=== PATIENT | male | born 1955 | race Caucasian/White ===

== ENCOUNTER 2022-03-08 21:19 | Emergency (ER) | payer OTHER, SELFPAY ==
[2022-03-08] VITALS (27 sets, daily range): BP systolic 132–148; BP diastolic 72–90; PULSE 69–150; RESP 9–22; TEMP 36.3; O2SAT 97–99
--- NOTE | 2022-03-08 21:15 | RT.EKG_ITS ---
APPROVED REPORT Exam: Resting ECG Reason for Exam: STROKE LIKE SX Patient Location: E HR:70 bpm ECG Measurements Heart Rate 70 AXIS OH 188 P 59 QRSd 97 QRS 32 QT 398 T 57 QTc 420 Conclusion Sinus rhythm...normal P axis, V-rate 60- 99 Atrial premature complexes...SV complexes w/ short R-R intvls Physician: no stemi, stable
--- NOTE | 2022-03-08 21:30 | DI.CT_ITS ---
Exam(s) CT CHEST/ABD/PEL W EXAM: CT CHEST/ABD/PEL W CLINICAL HISTORY: vomting, hx of pancreatitis TECHNIQUE: Imaging Protocol: Axial computed tomography images with coronal and sagittal reformatted images were created and reviewed CONTRAST MATERIAL: Intravenous: Omnipaque 350 contrast volume:75 mL Oral: No COMPARISON: No priors for comparison. FINDINGS: CHEST: Tracheobronchial tree: Patent where visualized. Pulmonary parenchyma: No consolidation or dominant measurable mass. Paraseptal emphysematous changes are present. Calcified granuloma are present. Visualized thyroid gland: Unremarkable. Mediastinum and Yoly: No dominant adenopathy or fluid collection. The esophagus is unremarkable. The re is a small hiatal hernia. Pleura: No effusion or pneumothorax. Heart: The heart is not dilated. Coronary artery calcification is present. No pericardial effusion. Pulmonary arteries: The pulmonary arteries are not adequately evaluated for evaluation of pulmonary e mboli. No large central pulmonary embolus is present. Aorta: Thoracic aorta non-dilated. Atherosclerosis is present. Lymph nodes: Within normal limits. Tubes, Catheters, and Lines: There is a right-sided ventriculoperitoneal shunt in place. Soft tissues: Unremarkable. Bones:Within normal limits for the patient's age. ABDOMEN: Liver: Normal density. No measurable mass. Portal, Superior Mesenteric, and Splenic Veins: Unremarkable. Gallbladder and Biliary Tract: Status post cholecystectomy. No biliary ductal dilatation. Pancreas: There are calcifications seen in the pancreatic head which likely reflect chronic pancreati tis. There is a 2 x 1.5 cm cyst in the head of the pancreas. There is a large peripancreatic fluid collection measuring 15.3 x 10.1 cm. There is some irregularity in thickening of the wall posteriorl y and inferiorly of the cyst. There is mild infiltrative changes seen around the head of the pancrea s. There is marked atrophy of the body and tail of the pancreas. Spleen: Normal. Adrenals: No masses seen. Kidneys: Normal size, contour and axis. No radiodense stones or obstructive uropathy. There is a simp le cyst in the right kidney. No follow-up is recommended. Abdominal Aorta: Abdominal portion non-dilated. Atherosclerosis is present. Bowel: No obstruction or bowel wall thickening. Appendix is unremarkable. There is diverticulosis see n in the sigmoid colon, but no evidence of acute diverticulitis. Peritoneal Cavity: No ascites, collection or mesenteric inflammatory response. No free air. Lymph Nodes: Within normal limits. Bones: Within normal limits for the patient's age. Postsurgical changes are seen in the thoracolumba r spine. Soft Tissues: The distal aspect of a ventricular peritoneal shunt is in place. PELVIS: Bladder: Symmetric distention, no gross wall thickening. Reproductive Organs: Unremarkable as visualized. Lymph Nodes: Within normal limits. Bones: Within normal limits. IMPRESSION: 1. Findings suggestive of mild acute pancreatitis. 2. Cystic foci seen within and adjacent to the pancreas. The largest measures 15 cm. These may refl ect old pseudocyst. Cystic neoplasms cannot be excluded. If there are prior examinations, they may be submitted for comparison. Follow-up examination is are recommended to document stability of the c ystic lesions and to exclude other etiologies. 3. Unremarkable CT scan of the chest. RADIATION DOSE DELIVERED: 1,571.76mGy.cm Total DLP DATA REPOSITORY: All CT scans at this facility are submitted to the National Radiology Data Registry (NRDR) Dose Index Registry (DIR) with the [employer] (ACR). RADIATION OPTIMIZATION: All CT scans at this facility use at least one of these dose optimization te chniques: automated exposure control; mA and/or kV adjustment per patient size (includes targeted exa ms where dose is matched to clinical indication); or iterative reconstruction.
--- NOTE | 2022-03-08 21:30 | DI.CT_ITS ---
Exam(s) CT BRAIN NECK CTA EXAM: CT BRAIN NECK CTA CLINICAL HISTORY: hx of shunt clots, on thinner, now confused/vomi. TECHNIQUE: Imaging Protocol: Axial CT angiography was performed with multi-slice acquisition and mu lti-planar and/or 3D reconstructions. CONTRAST MATERIAL: Intravenous: Contrast contrast volume:structured data in ml mL COMPARISON: No exams were available for comparison FINDINGS: CT Head W/O and W: Ventricles and Extra axial spaces: Moderate ventriculomegaly. Hemorrhage: None. Cerebral parenchyma: No acute territorial infarct is seen. There are areas of decreased attenuation in the white matter consistent with small vessel ischemic disease. There are areas of encephalomalac ia in the parietal occipital regions bilaterally and the right frontal lobe. The patient has a ventr iculoperitoneal shunt which enters in the right parietal occipital region and extends across the midl ine with the tip in the left periventricular white matter. Midline shift: None. Brainstem/Cerebellum: Normal. Calvarium: Normal. Ellsworth holes are seen in the calvarium. Visualized Paranasal sinuses/Mastoids: Clear. Soft Tissues: Unremarkable. Enhancement: Unremarkable. CTA Neck W: Common Carotid: Right: No dissection, occlusion or significant stenosis. Left: No dissection, occlusion or significant stenosis. External Carotid: Right: No occlusion or significant stenosis. Left: No occlusion or significant stenosis. Internal Carotid: Right: No dissection, occlusion or significant stenosis. Left: No dissection, occlusion or significant stenosis. Vertebral Artery: Right: No dissection, occlusion or significant stenosis. Left: No dissection, occlusion or significant stenosis. Lung Apices: There is scarring in the lung apices. Paraseptal emphysematous changes are present. Bones: Within normal limits for the patient's age. Soft Tissues: Normal. Thyroid gland: Unremarkable. CTA Brain W: Internal Carotid Arteries: Normal. Mild calcification is noted. This does result in mild narrowing of the distal left internal carotid artery. Anterior Cerebral Arteries: Right: No aneurysm, occlusion or significant stenosis. Left: No aneurysm, occlusion or significant stenosis. Middle Cerebral Arteries: Right: No aneurysm, occlusion or significant stenosis. Left: No aneurysm, occlusion or significant stenosis. Posterior Cerebral Arteries: Right: No aneurysm, occlusion or significant stenosis. The right INFORMATION ENGINEER arises predominantly from the r ight posterior communicating artery. Left: No aneurysm, occlusion or significant stenosis. Vertebral Arteries: Right: No aneurysm, occlusion or significant stenosis. Left: No aneurysm, occlusion or significant stenosis. Basilar Artery: No aneurysm, occlusion or significant stenosis. IMPRESSION: 1. No large vessel occlusion or significant stenosis on the CT angiography of the head. 2. Moderate ventriculomegaly. There are no priors for comparison in this patient with a ventriculope ritoneal shunt. 3. No definite acute intracranial process. 4. No occlusion or significant stenosis on the CT angiography of the neck. RADIATION DOSE DELIVERED: 2,330.92mGy.cm Total DLP DATA REPOSITORY: All CT scans at this facility are submitted to the National Radiology Data Registry (NRDR) Dose Index Registry (DIR) with the [employer] (ACR). RADIATION OPTIMIZATION: All CT scans at this facility use at least one of these dose optimization te chniques: automated exposure control; mA and/or kV adjustment per patient size (includes targeted exa ms where dose is matched to clinical indication); or iterative reconstruction.
--- NOTE | 2022-03-08 21:56 | W.ED.GENAD ---
Discharge Plan Disposition Patient Disposition: HOME Condition: Good Discharge Details Clinical Impression: Dehydration, CLIENT CARE REPRESENTATIVE (ventriculoperitoneal) shunt status Primary Care Provider: Unknown,Unknown ED Provider: Kike Plaza Home Meds and New Rx's Prescriptions: Continued multivitamin Tablet 1 tab PO DAILY amlodipine [Norvasc] 5 mg Tablet 5 mg PO DAILY metformin 1,000 mg Tablet 1,000 mg PO BID doxycycline hyclate 100 mg Tablet 100 mg PO DAILY cholecalciferol (vitamin D3) [Vitamin D3] 25 mcg (1,000 unit) Tablet 25 mcg PO DAILY Eliquis 2.5 mg Tablet 2.5 mg PO BID Discharge Instructions Instructions: Dehydration (ED) Additional Instructions: At this time your work-up is very reassuring, and we found no significant abnormalities requiring immediate intervention. As we discussed together I suspect the main reason for your symptoms was dehydration from your long trip today, and decreased intake. However because of your multiple medical problems in general it is important to continue to monitor your symptoms very closely. If you notice persistent vomiting, headache, confusion, or abdominal pain it is imperative that you return immediately for reassessment. Your complicated history that includes your shunt and your pancreatic problems in the past need to be closely monitored. As soon as you are back from your vacation please follow-up with your neurologist and primary care provider for reassessment of your shunt and pancreas. I am on tonight and tomorrow night. If you have any symptoms that concern you please do not hesitate to reach out to me here, and I would be happy to discuss your concerns. The emergency department can be reached at [phone] if you notice any worsening of your symptoms, or any new symptoms such as vomiting, diarrhea, fever, chills, shortness of breath, chest pain, numbness, weakness, or fainting , please return immediately to the emergency department for reevaluation. Please follow up with your primary care provider as soon as possible for reassessment and reevaluation. As always, it was a pleasure participating in your medical care today. 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 He is here with his . states that for the last 2 to 3 days he has had increased confusion, and weakness. This evening when they arrived they went and had dinner, after which he vomited. He complained of pain in his abdomen at that time which resolved after vomiting. He admits to mild headache but states that it is better than normal. He denies any chest pain or shortness of breath. Family denies any blood in the vomitus. Patient and family have no other complaints at this time. Patient is on chronic doxycycline secondary to previous infections, but otherwise denies any fever or medication change. He has not missed any doses of his medicines. Physical exam is actually very reassuring. No significant focal neurologic deficits that I can identify at this time. No nuchal rigidity. No meningeal signs. Shunt is nontender. Differential includes dehydration, mild infection, pancreatitis, viral etiology. We will evaluate for these concerning etiologies, monitor closely and reassess symptoms appear inconsistent with meningitis at this time. 1:24 AM On reassessment at this time after rehydration the patient looks remarkably well. He is talkative, interactive, and shows no signs of focal neurologic deficit. is at bedside and she states that he is back to his normal self. Patient is quite vigorous, states that he feels ready to go home and would like to leave. Notable clinical improvement in general after fluids. Laboratory work-up has returned, no white count bandemia or left shift. VBG and PCO2 normal, electrolytes all normal, BUN slightly elevated at 29 with a creatinine of 1.3 suggestive of mild dehydration or prerenal azotemia. After hydration with a liter of normal saline the patient did begin urinating well, and the urinalysis shows no evidence of infection. Ammonia and troponin levels are normal, lipase level is very normal at 260. Thyroid function normal. EKG shows no significant abnormalities, or evidence of STEMI. Patient feels well and would like to go home. CT imaging has returned, CT scan of the neck demonstrates an in place shunt, the tip is in the periventricular white matter. There is moderate ventriculomegaly, which is likely secondary to volume loss and white matter atrophy. No other imaging is available for comparison at this time. I did discuss this with the and she states that the patient has always had trouble with draining for all of his shunts, including his more recent ones. No evidence of stroke on CT imaging. No evidence of abnormality in the chest, CT scan of the abdomen does demonstrate some irritation around the pancreas which could be secondary to an acute process versus chronic scarring. However with a normal lipase, complete resolution of the patient's symptoms, a nontender abdomen on reassessment, no signs of acute clinical pancreatitis at this time, I feel that this is more likely secondary to scarring rather than an acute etiology. There is evidence of a cystic lesion noted on the pancreas which is likely chronic as well. I had a long discussion with the about these findings, and recommended close follow-up with her neurologist/neurosurgeon/primary care provider for reassessment and reimaging of the pancreas once they return home. At this time the patient feels well, and his feels very comfortable taking him home as she feels that he is back to his normal baseline. Highest likelihood of the cause of his symptoms was dehydration secondary to not eating or drinking anything on the way out for their trip today aside for a cup of coffee. However because of the patient's complex medical history I had a very long discussion with the and the patient discussed with him the importance of close monitoring of his symptoms, and if he has any return or worsening of the symptoms that they should return immediately for reassessment and reevaluation in the emergency department. Family understands this and feels very comfortable with the plan at this time. Patient stable for discharge. He did get up and ambulate well in and around the emergency department and out of the emergency department with no signs of ataxia, stumbling, or other abnormality. No clinical evidence of severe shunt malfunction at this time. No bulging of his previous postsurgical sites cranially. No clinical evidence of meningitis or acute clinical pancreatitis. I have extensively reviewed the treatment plan and discharge instructions with the patient and their family. I have addressed all patient concerns at this time. The patient and family was made aware of what symptoms to monitor for that would warrant a return to the emergency department. Discussed the plan with the patient and family, they demonstrate verbal understanding and agreement with our assessment and plan at this time. The documentation in this chart was dictated using [employer] dictation software. Please excuse any dictation errors. IMPRESSION: 1. No large vessel occlusion or hemodynamically significant stenosis within the intracranial arteries. Mild, approaching moderate, stenosis within the distal left ICA. 2. Right parieto-occipital approach ventriculoperitoneal shunt, with the tip projecting into the body of the left lateral ventricle, with the tip likely penetrating into the adjacent periventricular white matter. Moderate ventriculomegaly is seen, which may be secondary to the volume loss and white matter atrophy. However, comparison to prior studies is suggested to ensure stability and to exclude shunt failure. 3. Multifocal areas of gliosis within the supratentorial brain, which may represent sequela prior infarctions or prior trauma. No loss of han-white differentiation to suggest an acute cortical infarct at this time. IMPRESSION: No hemodynamically significant stenosis or occlusion within the extracranial arteries. FINDINGS: Tubes, catheters and devices: Right-sided shunt tubing noted. Lungs: Calcified left lower lobe granuloma noted medially. Minimal right lower lobe atelectasis. Pleural spaces: Unremarkable. No pneumothorax. No pleural effusion. Heart: Unremarkable. No cardiomegaly. No pericardial effusion. Lymph nodes: Unremarkable. No enlarged lymph nodes. Vasculature: Unremarkable. No aortic aneurysm. Diaphragm: Small hiatal hernia. Bones/joints: Status post thoracolumbar posterior fusion. Soft tissues: Unremarkable. IMPRESSION: No acute abnormality evident in the chest FINDINGS: Tubes, catheters and devices: Right-sided shunt tubing noted. Liver: Mild fatty liver. Gallbladder and bile ducts: Status post cholecystectomy. Pancreas: There is a slightly irregularly marginated fluid attenuation collection involving the body and tail region of the pancreas. It measures 15.2 x 9.3 by 10.5 cm. There is some irregularity to the posterior wall with some calcifications. There is marked atrophy of the pancreatic body and tail. There is very mild, acute peripancreatic inflammatory change at the level of the head and neck. There is a fluid density focus at the neck level 1.5 cm. Calcifications present in the pancreatic head consistent with prior episodes of pancreatitis. No definite ductal dilatation appreciated. Spleen: Normal. No splenomegaly. Adrenal glands: Normal. No mass. Kidneys and ureters: Normal. No hydronephrosis. Stomach and bowel: Diverticulosis without acute diverticulitis. Appendix: No evidence of appendicitis. Intraperitoneal space: Unremarkable. No free air. No significant fluid collection. Vasculature: Unremarkable. No abdominal aortic aneurysm. Lymph nodes: Unremarkable. No enlarged lymph nodes. Urinary bladder: Contrast is present in the renal collecting system and bladder presumably from earlier or recent injection. Reproductive: Unremarkable as visualized. Bones/joints: Unremarkable. No acute fracture. Soft tissues: Status post left inguinal hernia repair. IMPRESSION: Probable mild, acute pancreatitis involving the head and neck region. There are cystic foci associated with the pancreas, the largest measuring up to 15 cm, possible old pseudocyst. Cystic pancreatic neoplasm not excludable. Thank you for allowing us to participate in the care of your patient. Dictated and Authenticated by: Lamar Richmond MD 03/08/2022 11:53 PM Eastern Time ([place] & [place]) HPI General Date/Time Provider Initiated Documentation: 03/08/22 21:21. 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 He is here with his . states that for the last 2 to 3 days he has had increased confusion, and weakness. This evening when they arrived they went and had dinner, after which he vomited. He complained of pain in his abdomen at that time which resolved after vomiting. He admits to mild headache but states that it is better than normal. He denies any chest pain or shortness of breath. Family denies any blood in the vomitus. Patient and family have no other complaints at this time. Patient is on chronic doxycycline secondary to previous infections, but otherwise denies any fever or medication change. He has not missed any doses of his medicines. Related Data Home Medications Medication Instructions Recorded Confirmed amlodipine 5 mg tablet (Norvasc) 5 mg PO DAILY 03/08/22 03/08/22 apixaban 2.5 mg tablet (Eliquis) 2.5 mg PO BID 03/08/22 03/08/22 cholecalciferol (vitamin D3) 25 25 mcg PO DAILY 03/08/22 03/08/22 mcg (1,000 unit) tablet (Vitamin D3) doxycycline hyclate 100 mg tablet 100 mg PO DAILY 03/08/22 03/08/22 metformin 1,000 mg tablet 1,000 mg PO BID 03/08/22 03/08/22 multivitamin 1 tab PO DAILY 03/08/22 03/08/22 Allergies Allergy/AdvReac Type Severity Reaction Status Date / Time No Known Allergies Allergy Unverified 03/08/22 21:31 General Stated Complaint: GenMedical BARRY: 2 Review of Systems All systems reviewed & are unremarkable except as noted in HPI and below PFSH All Active Problems (Updated 03/09/22 @ 01:29 by Kike Plaza DO) Dehydration (Acute) CLIENT CARE REPRESENTATIVE (ventriculoperitoneal) shunt status (Acute) Social History Smoking/Tobacco Use Status: Former Tobacco Use Smoking risk assessment performed?: Yes Alcohol Intake: never Drug use: Never Substance use type: does not use Do you feel safe at home: Yes Do you feel safe in your relationship?: Yes Exam Narrative Exam Narrative: 1.Const: Well-nourished, Well-developed, appearing stated age 2.Eyes: PERRL, no conjunctival injection, and symmetrical lids. 3.ENT: Atraumatic external nose and ears. Moist MM. Neck: Symmetric, trachea midline, No thyromegaly. Patient demonstrates good movement of cervical neck. There is no nuchal rigidity, no nuchal tenderness. Patient is able to flex the neck without any difficulty or significant pain. Negative Kernig's and Brudzinski sign. Shunt is palpated on the posterior right scalp, no apparent distention. 4.CVS: +S1/S2, No murmurs or gallops. Peripheral pulses 2+ and equal in all extremities. Brisk capillary refill in all extremities. 5.RESP: Unlabored respiratory effort. Clear to auscultation bilaterally. No wheezes rales or rhonchi 6.GI: Soft, Nontender/Nondistended, No hepatosplenomegaly. No guarding or rebound. No pain McBurney's point. Negative Carmona sign. 7.MSK: Normocephalic/Atraumatic, Extremities w/o deformity or ttp No cyanosis or clubbing, Normal movement of all extremities 8.Skin: Warm, Dry. No rashes or lesions. 9.Neuro: chair mechanic II-XII grossly intact. Sensation grossly intact, no focal neurologic deficits. All 6 cardinal planes of vision are fully intact. No evidence of rotatory or vertical nystagmus. The patient demonstrated a normal fdzjec-[id number]-ozgepy, good dexterity. There was no evidence of dysdiadochokinesia. Zmeo-cv-ubyr testing was normal. Sensation was intact bilaterally as well as muscle strength bilaterally for all extremities. Patient was able to verbalize butter cup with no slurring, or miss pronunciation. 10.Psych: (AAO) x3. Appropriate mood and affect Course Vital Signs Vital signs: Vital Signs Temperature 36.3 C L 03/08/22 21: Pulse 150 H 03/08/22 21: Respiratory Rate 11 L 03/08/22 21: Blood Pressure 133/81 03/08/22 21:22 Pulse Oximetry 99 03/08/22 21:22 Temperature 36.3 C L 03/08/22 21: Pulse 150 H 03/08/22 21:22 Respiratory Rate 16 03/08/22 21:26 Respiratory Effort Non-Labored 03/08/22 21:26 Respiratory Depth Normal 03/08/22 21:26 Respiratory Pattern Normal 03/08/22 21:26 Blood Pressure 133/81 03/08/22 21:22 Blood Pressure Position Supine 03/08/22 21:22 Pulse Oximetry 99 03/08/22 21:22 Oxygen Delivery Method Room Air 03/08/22 21:22 Oxygen Flow Rate 0 03/08/22 21:22
[2022-03-08] MEDS: Normal Saline 1,000 ML 1000 ML IV (21:57)
[2022-03-08 21:59] LABS: Abs Immature Grans 0.03 10^3/uL (0.0-0.06); Absolute Basophil Count 0.03 10^3/uL (0.0-0.2); Absolute Eosinophil Count 0.26 10^3/uL (0.0-0.7); Absolute Lymphocyte Count 1.22 10^3/uL (1.2-3.4); Absolute Monocyte Count 0.39 10^3/uL (0.1-0.8); Absolute Neutrophil Count 5.03 10^3/uL (1.2-6.7); BE (Venous) 2 mmol/L (-2-3); Basophils % 0.4; Eosinophils % 3.7; HCO3 (Venous) 27 mmol/L (23-28); HCT 38.6 % (40.0-50.0); HGB 13.6 g/dL (13.5-17.5); Immature Grans % 0.4; Lymphocytes % 17.5; MCH 31.6 pg (27.0-33.0); MCHC 35.2 % (32.0-36.0); MCV 90 fL (80-95); MPV 9.5 fL (8.0-11.0); Monocytes % 5.6; Neutrophils % 72.4; O2 Sat (Venous) 57 %; Platelet Count 192 10^3/uL (130-400); RDW 13.6 % (11.8-14.1); RDW-SD 44.5 fL; TCO2 (Venous) 25 mmol/L (24-29); WBC 6.96 10^3/uL (4.4-10.8); pCO2 (Venous) 51 mmHg (41-51); pH (Venous) 7.34 (7.31-7.41); pO2 (Venous) 31 mmHg
[2022-03-08 22:15] LABS: PTT Activated 24.8 sec (21.0-27.5); Prothrombin Time 10.2 sec (9.3-11.0)
[2022-03-08 22:16] LABS: Lipase 260 U/L (73-393)
[2022-03-08 22:18] LABS: ALT 25 U/L (16-63); AST 12 U/L (15-37); Albumin 3.9 g/dL (3.4-5.0); Alkaline Phosphatase 76 U/L (46-116); Ammonia < 10 umol/L (11-32); BUN 29 mg/dL (7-18); Bilirubin, Total 0.5 mg/dL (0.2-1.0); CREATININE 1.3 mg/dL (0.70-1.30); Chloride 100 mmol/L (98-107); Glucose 178 mg/dL (74-106); Potassium 4.4 mmol/L (3.5-5.1); Sodium 136 mmol/L (136-145); Total Protein 7.4 g/dL (6.4-8.2)
[2022-03-08 22:28] LABS: TSH (W/Ref FT4) 1.51 uIU/mL (0.36-3.74); Troponin I < 50 ng/L (<or=60)
[2022-03-08 22:37] LABS: COVID-19 PCR Negative (Negative); Influenza A PCR Negative (Negative); Influenza B PCR Negative (Negative); RSV PCR Negative (Negative)
[2022-03-08 22:38] LABS: Source Nasopharynx
[2022-03-08] MEDS: Omnipaque 350 MG/ML 100 ML BTL 75 ML IJ ×2 (23:06→23:07)
[2022-03-08 23:18] LABS: Bilirubin Negative (Negative); Blood Negative (Negative); Clarity Clear (Clear); Glucose 100 mg/dL (Negative); Ketones Negative (Negative); Leukocyte Esterase Negative (Negative); Nitrite Negative (Negative); Urobilinogen 0.2 EU/dL (Up TO 0.2)
--- NOTE | 2022-03-08 23:54 | DI.VRAD_ITS ---
PROCEDURE INFORMATION: Exam: CT Chest With Contrast; Diagnostic Exam date and time: 03/08/2022 11:00 PM Age: 67 years old Clinical indication: Other: Vomiting, HX of pancreatitis; Patient HX: HX evp [place] shunt; Additional info: Vomiting, HX of pancreatitis. HX of shunt \T\ clots, on thinner, now confused/vomiting TECHNIQUE: Imaging protocol: Diagnostic computed tomography of the chest with contrast. Radiation optimization: All CT scans at this facility use at least one of these dose optimization techniques: automated exposure control; mA and/or kV adjustment per patient size (includes targeted exams where dose is matched to clinical indication); or iterative reconstruction. Contrast material: OMNI 350; Contrast volume: 100 ml; Contrast route: INTRAVENOUS (IV); COMPARISON: CT BRAIN NECK CTA 03/08/2022 10:41 PM FINDINGS: Tubes, catheters and devices: Right-sided shunt tubing noted. Lungs: Calcified left lower lobe granuloma noted medially. Minimal right lower lobe atelectasis. Pleural spaces: Unremarkable. No pneumothorax. No pleural effusion. Heart: Unremarkable. No cardiomegaly. No pericardial effusion. Lymph nodes: Unremarkable. No enlarged lymph nodes. Vasculature: Unremarkable. No aortic aneurysm. Diaphragm: Small hiatal hernia. Bones/joints: Status post thoracolumbar posterior fusion. Soft tissues: Unremarkable. IMPRESSION: No acute abnormality evident in the chest. PROCEDURE INFORMATION: Exam: CT Abdomen And Pelvis With Contrast Exam date and time: 03/08/2022 11:00 PM Age: 67 years old Clinical indication: Other: Vomiting, HX of pancreatitis; Patient HX: HX evp [place] shunt; Additional info: Vomiting, HX of pancreatitis. HX of shunt \T\ clots, on thinner, now confused/vomiting TECHNIQUE: Imaging protocol: Computed tomography of the abdomen and pelvis with contrast. Radiation optimization: All CT scans at this facility use at least one of these dose optimization techniques: automated exposure control; mA and/or kV adjustment per patient size (includes targeted exams where dose is matched to clinical indication); or iterative reconstruction. Contrast material: OMNI 350; Contrast volume: 100 ml; Contrast route: INTRAVENOUS (IV); COMPARISON: No relevant prior studies available. FINDINGS: Tubes, catheters and devices: Right-sided shunt tubing noted. Liver: Mild fatty liver. Gallbladder and bile ducts: Status post cholecystectomy. Pancreas: There is a slightly irregularly marginated fluid attenuation collection involving the body and tail region of the pancreas. It measures 15.2 x 9.3 by 10.5 cm. There is some irregularity to the posterior wall with some calcifications. There is marked atrophy of the pancreatic body and tail. There is very mild, acute peripancreatic inflammatory change at the level of the head and neck. There is a fluid density focus at the neck level 1.5 cm. Calcifications present in the pancreatic head consistent with prior episodes of pancreatitis. No definite ductal dilatation appreciated. Spleen: Normal. No splenomegaly. Adrenal glands: Normal. No mass. Kidneys and ureters: Normal. No hydronephrosis. Stomach and bowel: Diverticulosis without acute diverticulitis. Appendix: No evidence of appendicitis. Intraperitoneal space: Unremarkable. No free air. No significant fluid collection. Vasculature: Unremarkable. No abdominal aortic aneurysm. Lymph nodes: Unremarkable. No enlarged lymph nodes. Urinary bladder: Contrast is present in the renal collecting system and bladder presumably from earlier or recent injection. Reproductive: Unremarkable as visualized. Bones/joints: Unremarkable. No acute fracture. Soft tissues: Status post left inguinal hernia repair. IMPRESSION: Probable mild, acute pancreatitis involving the head and neck region. There are cystic foci associated with the pancreas, the largest measuring up to 15 cm, possible old pseudocyst. Cystic pancreatic neoplasm not excludable. Dictated and Authenticated by: Lamar Richmond MD. Ordering:ALIN Stokes MD
[2022-03-09] VITALS (13 sets, daily range): BP systolic 123–138; BP diastolic 87–89; PULSE 87–197; RESP 10–17; TEMP 36.5; O2SAT 97–98
--- NOTE | 2022-03-09 00:11 | DI.VRAD_ITS ---
PROCEDURE INFORMATION: Exam: CTA Head Without And With Contrast, Arteriography Exam date and time: 03/08/2022 10:41 PM Age: 67 years old Clinical indication: Other: HX of shunt \T\ clots, on thinner, now confused/vomiting TECHNIQUE: Imaging protocol: Computed tomographic angiography of the head without and with contrast. Exam focused on the arteries. 3D rendering (Not supervised by radiologist): MIP and/or 3D reconstructed images were created by the technologist. Radiation optimization: All CT scans at this facility use at least one of these dose optimization techniques: automated exposure control; mA and/or kV adjustment per patient size (includes targeted exams where dose is matched to clinical indication); or iterative reconstruction. Contrast material: OMNI 350; Contrast volume: 75 ml; Contrast route: INTRAVENOUS (IV); COMPARISON: No relevant prior studies available. FINDINGS: ANTERIOR CIRCULATION: Right internal carotid artery: Intracranial segment is patent with no significant stenosis or occlusion. No aneurysm. Mild peripheral calcific atherosclerotic plaque within the cavernous segment. Right middle cerebral artery: No occlusion or significant stenosis. No aneurysm. Right anterior cerebral artery: No occlusion or significant stenosis. No aneurysm. Left internal carotid artery: Peripheral calcific atherosclerotic plaque within the distal cavernous segment resulting in mild, approaching moderate stenosis. No occlusion. No aneurysm. Left middle cerebral artery: No occlusion or significant stenosis. No aneurysm. Left anterior cerebral artery: No occlusion or significant stenosis. No aneurysm. POSTERIOR CIRCULATION: Right vertebral artery: No occlusion or significant stenosis. No aneurysm. Left vertebral artery: No occlusion or significant stenosis. No aneurysm. Basilar artery: No occlusion or significant stenosis. No aneurysm. Right posterior cerebral artery: circulation. No occlusion or significant stenosis. No aneurysm. Left posterior cerebral artery: No occlusion or significant stenosis. No aneurysm. HEAD: Brain: Moderate diffuse volume loss throughout the brain parenchyma. Areas of gliosis are seen within the right frontal lobe and right parietooccipital lobe. Diffuse white matter atrophy with multifocal and confluent areas of low attenuation within the subcortical and periventricular white matter. A small area of gliosis is seen within the left posterior parietooccipital lobe, adjacent to a norma hole. No extra-axial fluid collection. No midline shift. A bobbi cisterna magna is incidentally noted. Cerebral ventricles: A right parieto-occipital approach ventriculoperitoneal drain is seen, with tip projecting into the body of the left lateral ventricle. The tip appears to extend and penetrate into the adjacent periventricular white matter. Moderate ventriculomegaly. Bones/joints: Multiple norma holes throughout the skull. No evidence for acute acute skull fracture. Paranasal sinuses: The paranasal sinuses are well aerated. Mastoid air cells: The mastoid air cells are well aerated. Soft tissues: Unremarkable. IMPRESSION: 1. No large vessel occlusion or hemodynamically significant stenosis within the intracranial arteries. Mild, approaching moderate, stenosis within the distal left ICA. 2. Right parieto-occipital approach ventriculoperitoneal shunt, with the tip projecting into the body of the left lateral ventricle, with the tip likely penetrating into the adjacent periventricular white matter. Moderate ventriculomegaly is seen, which may be secondary to the volume loss and white matter atrophy. However, comparison to prior studies is suggested to ensure stability and to exclude shunt failure. 3. Multifocal areas of gliosis within the supratentorial brain, which may represent sequela prior infarctions or prior trauma. No loss of han-white differentiation to suggest an acute cortical infarct at this time. PROCEDURE INFORMATION: Exam: CTA Neck Without And With Contrast Exam date and time: 03/08/2022 10:41 PM Age: 67 years old Clinical indication: Other: HX of shunt \T\ clots, on thinner, now confused/vomiting TECHNIQUE: Imaging protocol: Computed tomographic angiography of the neck without and with contrast. 3D rendering (Not supervised by radiologist): MIP and/or 3D reconstructed images were created by the technologist. Radiation optimization: All CT scans at this facility use at least one of these dose optimization techniques: automated exposure control; mA and/or kV adjustment per patient size (includes targeted exams where dose is matched to clinical indication); or iterative reconstruction. Contrast material: OMNI 350; Contrast volume: 75 ml; Contrast route: INTRAVENOUS (IV); COMPARISON: No relevant prior studies available. FINDINGS: Right common carotid artery: No hemodynamically significant stenosis. No dissection or occlusion. Right internal carotid artery: No hemodynamically significant stenosis of the extracranial segment. No dissection or occlusion. Right external carotid artery: No occlusion or hemodynamically significant stenosis of the origin. Left common carotid artery: No hemodynamically significant stenosis. No dissection or occlusion. Left internal carotid artery: No hemodynamically significant stenosis of the extracranial segment. No dissection or occlusion. Left external carotid artery: No occlusion or hemodynamically significant stenosis of the origin. Right vertebral artery: No hemodynamically significant stenosis. No dissection or occlusion. Left vertebral artery: No hemodynamically significant stenosis. No dissection or occlusion. Soft tissues: Normal. No significant soft tissue swelling. Bones/joints: No acute fracture. Lungs: Bandlike pulmonary opacifications within the upper lobes, suggesting areas of scarring. IMPRESSION: No hemodynamically significant stenosis or occlusion within the extracranial arteries. REFERENCES: NASCET CRITERIA. The degree of internal carotid artery stenosis is based on NASCET criteria. Normal is no stenosis. Mild is less than 50% stenosis. Moderate is 50-69% stenosis. Severe is 70% to 99% stenosis. Total occlusion is no detectable patent lumen. Dictated and Authenticated by: Meredith Chris MD. Ordering:ALIN Stokes MD
== END 2022-03-09 01:22 | disposition home or self-care (01) ==
PROVIDERS: Emergency Provider Student in an Organized Health Care Education/Training Program
DX: E86.0 Dehydration (principal); I25.2 Old myocardial infarction; E11.9 Type 2 diabetes mellitus without complications; I10 Essential (primary) hypertension; E78.00 Pure hypercholesterolemia, unspecified; Z87.891 Personal history of nicotine dependence; Z98.2 Presence of cerebrospinal fluid drainage device; Z20.822 Contact with and (suspected) exposure to COVID-19; Z86.73 Personal history of transient ischemic attack (TIA), and cerebral infarction without residual deficits; Z79.01 Long term (current) use of anticoagulants; Z79.84 Long term (current) use of oral hypoglycemic drugs
CPT/HCPCS: 36415; 70496; 70498; 74177; 80053; 82805; 83690; 87637; 93005; 96360; 99285; 71260; 81003; 82140; 84443; 84484; 85025; 85610; 85730; 93010; J3490